=== PATIENT | male | born 1960 | race African-American/Black ===

== ENCOUNTER → 2017-07-04 | Outpatient (CLI) | payer OTHER ==
[~2017-07-04] MED LIST: ALLOPURINOL 30300 M2 PO; BUSPIRONE PO; DILANTIN100 MG PO; FAMOTIDINE20 MG PO; GLYBURIDE 2.52.5 M1 GT; LISINOPRIL40 MG PO; METFORMIN 500500 MG PO; NORCO 5-325 TA1 EACH PO; PREDNISONE 10 M10 MG PO; SIMVASTATIN40 MG PO; TRAMADOL 50 MG50 MG PO
== END ==
LOC: RAD 11:35
DX: R61 Generalized hyperhidrosis (principal); Z98.890 Other specified postprocedural states; Z87.81 Personal history of (healed) traumatic fracture

== ENCOUNTER → 2017-07-18 | Outpatient (CLI) | payer OTHER | LOC: ULTRA 15:10 | DX: K76.0 Fatty (change of) liver, not elsewhere classified (principal); R94.5 Abnormal results of liver function studies ==

== ENCOUNTER 2020-05-17 10:14 | Inpatient (IN) | payer OTHER ==
[~2020-05-17] VITALS: Ht 177.8 cm; Wt 92.1 kg
[~2020-05-17 10:14] MED LIST changes: -ALLOPURINOL 30300 M2 PO; +ZYLOPRIM300 MG PO
[2020-05-17 10:19] VITALS: BP 148/87
[2020-05-17 12:09] LABS: ABSOLUTE NEUTROPHILS 3.8 thou/uL (1.4-8.2); BASOPHILS 0.6 % (0.0-2.0); EOSINOPHILS 0.1 % (0.0-3.0); HEMATOCRIT 38.2 % (42.0-52.0); HEMOGLOBIN 11.8 gm/dL (14.0-18.0); LYMPHOCYTES 23.5 % (24.0-44.0); MCH 25.2 pg (26.0-34.0); MCHC 30.8 g/dL (28.0-37.0); MCV 81.9 fL (80.0-100.0); MONOCYTES 6.7 % (1.0-8.0); POLYS 69.1 % (36.0-66.0); RBC 4.66 mil/uL (4.50-6.00); RDW 17.2 % (10.5-14.5); WBC 5.5 thou/uL (4.0-11.0)
[2020-05-17 12:45] VITALS: BP 140/83
[2020-05-17] MEDS ORDERED: AMITRIPTYLINE H10 M1 PO (12:51)
[2020-05-17] MEDS ORDERED: NORVASC 2.5 MG2.5 M1 PO (12:51)
[2020-05-17] MEDS ORDERED: HYDROCORTISONE30 GM TOP (12:52)
[2020-05-17] MEDS ORDERED: VOLTAREN GEL 1100 G1 TOP (12:52)
[2020-05-17] MEDS ORDERED: LYRICA 50 MG50 MG PO ×2 (12:53→14:53)
[2020-05-17] MEDS ORDERED: TRAMADOL 50 MG50 MG PO (12:54)
[2020-05-17] MEDS ORDERED: TOPROL XL25 MG PO (12:54)
[2020-05-17] MEDS ORDERED: MITIGARE0.6 MG PO ×2 (12:54→14:53)
[2020-05-17] MEDS ORDERED: DESYREL150 MG PO (12:55)
[2020-05-17 13:11] LABS: CALCIUM 9.3 mg/dL (8.5-10.1); CREATININE 0.9 mg/dL (0.7-1.3); POTASSIUM 3.6 mmol/L (3.5-5.1)
[2020-05-17 13:18] LABS: ALBUMIN 3.2 g/dL (3.4-5.0); MAGNESIUM 1.5 mg/dL (1.8-2.4); TOTAL BILIRUBIN 0.5 mg/dL (0.2-1.0); TOTAL PROTEIN 7.8 g/dL (6.4-8.2)
[2020-05-17 13:30] VITALS: BP 161/86
[2020-05-17 13:32] LABS: FOLIC ACID 12.2 ng/mL (8.6-58.9)
[2020-05-17 13:44] LABS: ANISOCYTOSIS 1+; BURR CELLS OCCASIONAL; LARGE PLATELETS OCCASIONAL; POIKILOCYTOSIS SLIGHT; TARGET CELLS FEW
[2020-05-17 13:45] LABS: PLATELET COUNT 209 thou/uL (150-400)
--- NOTE | 2020-05-17 13:54 | NUR ---
ASSUMED CARE AT 1300. PT IS A&O X4. PT COMPLAINS OF PAIN ON RIGHT SHOULDER. PT DENIES NAUSEA, VOMITTING, DIARRHEA. PT DENIES SCD HOSE AND CONTACTED DR. FOX REGARDING ORDERING LOVENOX/HEPARIN DUE TO REFUSAL ON SCD HOSE. IV IS INTACT AND SHOWS NO SIGNS OF REDNESS OR SWELLING. FALL PRECAUTION. CALL LIGHT WITHIN REACH.
[2020-05-17] MEDS ORDERED: VITAMIN D310 MC2 PO (14:55)
[2020-05-17 15:45] VITALS: BP 154/85
[2020-05-17 20:39] VITALS: BP 148/77
[2020-05-18 05:23] LABS: ABSOLUTE NEUTROPHILS 5.3 thou/uL (1.4-8.2); BASOPHILS 0.3 % (0.0-2.0); EOSINOPHILS 0.9 % (0.0-3.0); HEMATOCRIT 33.1 % (42.0-52.0); HEMOGLOBIN 10.3 gm/dL (14.0-18.0); LYMPHOCYTES 27.2 % (24.0-44.0); MCH 25.2 pg (26.0-34.0); MCV 81.4 fL (80.0-100.0); MONOCYTES 14.7 % (1.0-8.0); POLYS 56.9 % (36.0-66.0); RBC 4.07 mil/uL (4.50-6.00); RDW 16.4 % (10.5-14.5); WBC 9.3 thou/uL (4.0-11.0)
[2020-05-18 05:53] LABS: CALCIUM 9.2 mg/dL (8.5-10.1); MAGNESIUM 1.4 mg/dL (1.8-2.4); POTASSIUM 3.3 mmol/L (3.5-5.1)
--- NOTE | 2020-05-18 06:31 | NUR ---
ASSESSED AT START OF SHIFT. PT C/O PAIN IN RIGHT SHOULDER MANAGED BY PO PAIN MEDS SEE EMAR. UP WITH ASSITX1 TO THE BR. COVID SWAB DONE AND RESULT NEGATIVE. RIGHT SHOULDER SLING INTACT. PT NPO FOR POSSIBLE SX TOMORROW. FALL PREC IN PLACE WILL CONT TO MONITOR.
[2020-05-18 08:17] LABS: URINE BILIRUBIN NEGATIVE (Negative); URINE BLOOD NEGATIVE (Negative); URINE CLARITY CLEAR; URINE COLOR YELLOW; URINE GLUCOSE-RANDOM* NEGATIVE (Negative); URINE KETONES NEGATIVE (Negative); URINE LEUKOCYTES-REFLEX NEGATIVE (Negative); URINE NITRITE-REFLEX NEGATIVE (Negative); URINE PROTEIN (DIPSTICK) NEGATIVE (Negative); URINE SPECIFIC GRAVITY >= 1.030 (1.005-1.035); URINE UROBILINOGEN 0.2 E.U./dl (0.2-1.0)
[2020-05-18] MEDS ORDERED: PREGABALIN50 MG PO (08:28)
--- NOTE | 2020-05-18 11:33 | NUR ---
assessment: cm reviewed chart and spoke with patient. PT IS ALERT AND ORIENTED X4. PT WAS ADMITTED WITH A RIGHT SHOULDER FRACTURE. PTS ARM IS IN SLING AND ORTHO WAS CONSULTED- PT WANTS TO AVOID SURGERY AT THIS TIME. PT REPORTS LIVING AT HOME IN AN APT LONE. PT REPORTS NO STEPS TO ENTER OR ONCE INSIDE. PT HAS A WALKER AT HOME TO ASSIT WITH AMBULATION BUT CANNOT USE IT NOW DUE TO HIS SLING. PT/OT IS TO WORK WITH PATIENT BUT WAITING FOR IMMOBILIZER. ORTHO RECOMMENDED SNF FOR PATIENT BUT PT HAS MEDICAID WHICH DOES NOT COVER SNF AND ONLY OPTION IS ACUTE REHAB VS HOME WITH HOME HEALTH. CM NOTIFIED [facility] OF REFERRAL AND THEY ARE AWAITING PT/OT EVALS. CM ALSO FAXED REFERRAL TO [facility] THEY ACCEPT MEDICAID BUT CAN ONLY PROVIDE AN RN AND PT/OT HH IS NOT COVERED UNDER MEDICAID. PT REPORTS HE ALSO GETS HELP AT HOME THROUGH THE WHOLE PERSON WHERE SOMEONE COMES 4HRS A WEEK TO HELP ASSIST HIM IF NEEDED WITH LAUNDRY, ECT. CM WILL CONTINUE TO FOLLOW AND AWAIT FURTHER INPUT FROM [facility].
[2020-05-18 13:29] LABS: PLATELET COUNT 94 thou/uL (150-400)
--- NOTE | 2020-05-18 14:58 | NUR ---
PT CARE ASSUMED AT 0700. A&Ox4. SHOULDER IMMOBILIZER IN PLACE. PT WILL CONTINUE TO ASK FOR PAIN MEDICATION, AND ASK ALL STAFF THAT HIS PAIN IS NOT CONTROLLED. IV PATENT WITH NO REDNESS OR EDEMA, SALINE LOCKED. SENT TO CT, AWAITING RESULTS. PT/OT EVALUATION COMPLEETED. POSSIBLE DISCHARGE TO REHAB TODAY. FALL PROTOCOL IN PLACE. CALL LIGHT IN REACH. WILL CONTINUE TO MONITOR.
[2020-05-18 16:07] VITALS: BP 142/80
[2020-05-18 19:30] VITALS: BP 147/76
[2020-05-19 04:33] VITALS: BP 134/67
--- NOTE | 2020-05-19 06:08 | NUR ---
05-18-19 CARE TRANSFERRED 1899. PT AAOX4, VSS, RR EVEN AND NONLABORED ON RA. PT REPORTS PAIN, MANAGED WITH MEDICATION. LUNGS SOUNDS CLEAR AND HT RR. L AC SALINE LOCK, CLEAN, DRY AND INTACT. 375ML OF DARK YELLOW URINE. ZERO S/S OF ACUTE DISTRESS NOTED, PT WILL CONTINUE TO BE MONITOR.
[2020-05-19 07:35] VITALS: BP 132/63
[2020-05-19 08:38] VITALS: BP 132/63
--- NOTE | 2020-05-19 09:35 | NUR ---
ON-GOING ASSESSMENT: ASHLEY REVIEWED CHART AND SPOKE WITH LIASON FROM WHO REPORTS THEY HAVE INSURANCE AUTH TO ACCEPT PT. CM NOTIFIED ATTENDING. HE STATES HE WILL DO DISCHARGE ORDERS. CM SPOKE WITH PT AND NOTIFIED HIM AND HE IS AGREEABLE WITH . PLANS TO ADMIT TO TODAY. BEDSIDE RN AWARE OF NUMBER FOR REPORT.
[2020-05-19] MEDS ORDERED: BUSPIRONE HCL10 MG PO (09:58)
[2020-05-19] MEDS ORDERED: PERCOCET 10-321 EACH PO (09:58)
== END 2020-05-19 13:08 | DRG 563 ==
LOC: ER 10:14 → EROBS 12:37 → 4S 13:20
PROVIDERS: Nurse Practitioner; ADMIT Hospitalist; ATTEND Hospitalist
DX: S42.211A Unspecified displaced fracture of surgical neck of right humerus, initial encounter for closed fracture (principal); M10.9 Gout, unspecified; E78.5 Hyperlipidemia, unspecified; I10 Essential (primary) hypertension; G89.29 Other chronic pain; E11.42 Type 2 diabetes mellitus with diabetic polyneuropathy; F17.210 Nicotine dependence, cigarettes, uncomplicated; F41.1 Generalized anxiety disorder; E66.9 Obesity, unspecified; Z68.29 Body mass index [BMI] 29.0-29.9, adult; M48.02 Spinal stenosis, cervical region; M47.892 Other spondylosis, cervical region; W18.39XA Other fall on same level, initial encounter; Y93.89 Activity, other specified; Y92.89 Other specified places as the place of occurrence of the external cause; Y99.8 Other external cause status; Z20.822 Contact with and (suspected) exposure to COVID-19
CPT/HCPCS: 10195

== ENCOUNTER 2020-05-19 10:18 | Inpatient (IN) | payer OTHER ==
[~2020-05-19] VITALS: Ht 177.8 cm; Wt 92.1 kg
[~2020-05-19 10:18] MED LIST changes: +AMITRIPTYLINE H10 M1 PO; +BUSPIRONE HCL10 MG PO; +DESYREL150 MG PO; +HYDROCORTISONE30 GM TOP; +LYRICA 50 MG50 MG PO; +MITIGARE0.6 MG PO; +NORVASC 2.5 MG2.5 M1 PO; +PERCOCET 10-321 EACH PO; +PREGABALIN50 MG PO; +TOPROL XL25 MG PO; +VITAMIN D310 MC2 PO; +VOLTAREN GEL 1100 G1 TOP
[2020-05-19 14:06] VITALS: BP 131/79
--- NOTE | 2020-05-19 15:45 | NUR ---
PATIENT IS AN 59 YEAR OLD MALE WHO ARRIVED TO [facility] REHAB UNIT FROM [facility] AT 1255HOURS PATIENT ADMITTED TO ROOM 512. PATIENT IS ALERT, AND ORIENTED X 3-4 ABLE TO VOICE NEED. LCTA, RESP EVEN/UNLABORED, NO SOA/CYANOSIS NOTED, BS+X4, ABS ROUND, OBESE. PATIENT IS ADMITTED FOR RIGHT HUMERAL NECK FRACTURE DUE TO FALL AT HOME. PATIENT IS NWB TO RIGHT HAND, SLING IN PLACE. PATIENT HAS SALINE LOCK TO LEFT AC. PATIENT HAS HISTORY OF DIABETIC TYPE 2. PATIENT HAD SEVERE PAIN OF 10/10 TO RIGHT SHOULDER UPON ARRIVAL TO THE UNIT, PRN OXY GIVEN, WITH PARTIAL EFFECT, PAIN DECREASED TO 7/10. PT/OT WORKING WITH PATIENT, HE USES WALKER FOR MOBILITY, GAIT UNSTEADY. CURRENTLY IN [facility] WATCHING TV, NO SIGN OF ACUTE DISTRESS NOTED, CALL LIGHT IN REACH, WILL MONITOR FOR SAFETY.
[2020-05-19 20:00] VITALS: BP 141/79
--- NOTE | 2020-05-20 03:52 | NUR ---
Assumed care of patient this pm shift. Patient is in good spirits, calm and cooperative. Alert and oriented x4. Takes medications whole with thin liquids. Falls precautions in place. Pain has been controlled with oxycodone. Patient reports pain levels decrease significantly with medication. Assessment shows no signs of acute distress. Patient was concerned about his medications at the beginning of the shift as to whether they transferred from his previous location to [facility]. RN explained which medications were available at . Patient was satisfied with the explanation. We will continue to monitor per hospital policy.
[2020-05-20 06:11] LABS: HEMATOCRIT 29.8 % (42.0-52.0); HEMOGLOBIN 9.2 gm/dL (14.0-18.0); MCH 25.5 pg (26.0-34.0); MCHC 30.8 g/dL (28.0-37.0); MCV 82.5 fL (80.0-100.0); RBC 3.61 mil/uL (4.50-6.00); WBC 8.4 thou/uL (4.0-11.0)
[2020-05-20 06:18] LABS: CALCIUM 9.3 mg/dL (8.5-10.1); CREATININE 0.9 mg/dL (0.7-1.3); POTASSIUM 3.8 mmol/L (3.5-5.1)
[2020-05-20 07:00] VITALS: BP 141/78
[2020-05-20 19:40] VITALS: BP 136/66
--- NOTE | 2020-05-20 19:42 | NUR ---
Alert and orientated X4. Calm, cooperative and compliant. Significant pain in R shoulder today, medicated with hydrocodone and diclofenac with moderate results. Breath sounds clear. Reg HR auscultated. Color pink with brisk capillary refill and palpable peripheral pulses. +1 edema in lower extremities. Maximo hose provided and applied per pt request. Continent of yellow urine per toilet. Active bowel sounds over large, soft, rounded abdomen. Steady gait with walker and gait belt. Shoulder immobilizer in place all day.
--- NOTE | 2020-05-21 01:57 | NUR ---
UP TO TOILET AND TO BED FROM CHAIR WITH STANDBY ASSIST, GAIT BELT, AND HALF WALKER. ICE BAG AND VOLTAREN TO RIGHT SHOULDER. PATIENT NOTES SIGNIFICANT BRUISING. PAIN MED Q 4 HOURS, REPORTS SIGNIFICANT RELIEF FOR FIRST 3 HOURS.
[2020-05-21 03:07] LABS: GLYCOHEMOGLOBIN (HGB A1C) 5.7 % (4.8-5.6)
[2020-05-21 08:44] VITALS: BP 126/59
--- NOTE | 2020-05-21 14:09 | NUR ---
ASSUMED CARE AT 0700 THIS MORNING. PT. STABLE. HAS KNEE HIGH DEDRICK LARSON ON. HE WAS ASKING FOR ANOTHER PAIR. HE AMBULATED WITH THERAPIES THIS MORNING. HE HAS BEEN UP IN THE CHAIR BY BEDSIDE TODAY. HE TOOK ALL HIS MORNING MEDICATIONS WITHOUT PROBLEMS NOTED. HAD FEMALE VISITOR TODAY. THEY WERE GOING THROUGH PT.'S CLOTHING. PT. HAS BEEN PLEASANT AND COOPERATIVE. HE IS EATING WELL.
[2020-05-21 20:09] VITALS: BP 140/82
--- NOTE | 2020-05-22 01:58 | NUR ---
UP TO TOILET WITH PYRAMID CANE AND STANDBY ASSIST. TO BED APPROX 2129, DECLINES OFFER TO REMOVE DEDRICK HOSE OVERNIGHT, ABLE TO USE URINAL. 4 PILLOWS TO ADJUST BED ENOUGH THAT HIS ELBOWS ARE SUPPORTED WITH HIS RIGHT SHOULDER IMMOBILIZER HOLDING HIS HUMERUS IN PLACE. PERCOCET FOR PAIN LESS OFTEN THAN THE AVAILABLE Q4H, TAKES WHEN PAIN 8/10 APPROACHES 9/10. ICE PACK AND VOLTAREM HELPFUL WELL.
[2020-05-22 07:20] VITALS: BP 128/75
--- NOTE | 2020-05-22 13:23 | NUR ---
INITIAL REHAB ASSESSMENT: Received consult. SW reviewed chart. Pt was admitted on 05/19 due to abnormality of gait/mobility. SW placed calls to pt's room. No answer Per chart, pt is alert/orientated x 4. Pt lives at home alone in an apt. No steps to navigate. Pt normally uses a walker for ambulation. Pt with new right shoulder fracture, which is currently in a sling. No plans for surgical interventions at this time. Pt [place] care [place] through the [facility]: 4 hours/week. Pt's PCP is Dr. Baljeet Gillette. Team conference to be held tomorrow. Plan is for pt to discharge home when medically stable. MICHELLE is following to assist as needed with discharge planning.
--- NOTE | 2020-05-22 18:10 | NUR ---
PT CARE ASSUMED AT 0700. A&Ox4. PT COMPLAINED OF PAIN TWICE DURING THIS SHIFT THAT WAS RESOLVED WITH PAIN MEDICATION ON BOAR. PT HAD TO URGENTLY GO TOT THE BATHROOM AND GOT UP WITHOUT CALLING FOR ASSISTANCE. IMOBILIZER IN PLACE. USES URINAL AT BEDSITE. TEDHOSES IN PLACE. FALL PROTOCOL IN PLACE. CALL LIGHT IN REACH. WILL CONTINUE TO MONITOR.
[2020-05-22 19:49] VITALS: BP 140/81
--- NOTE | 2020-05-22 23:12 | NUR ---
PATIENT WAS IRRITABLE THIS EVENING WHEN I ASSUMED CARE OF HIM. THE DAY NURSE STATES THAT PATIENT HAS BEEN ADDICTED TO NARCOTIC PAIN MEDS AND HIS PCP HAD FIRED HIM A PATIENT BECAUSE HE WAS SHOPPING AROUND TO GET PAIN MEDS. BELIEVE THE ADDICTION CAME FROM HAVING PAST SURGERIES. PATIENT HAS PERCOCET ORDERED EVERY 4 HOURS PRN. WHEN HE WAS ON ANOTHER FLOOR IT WAS Q6H PRN. PATIENT WAS C/O 10/10 PAIN IN RIGHT ARM/SHOULDER WHEN I GAVE HIM HIS HS MEDS. PERCOCET GIVEN AT THAT TIME FOR PAIN RELIEF. PATIENT USES A PYRAMID QUAD CANE BUT FORGETS TO USE IT FREQUENTLY. HE IS MODERATELY STEADY ON HIS FEET AND WITH GAIT. GAIT BELT USE ALSO. PATIENT HAS A SHOULDER IMMOBILIZER ON RIGHT ARM. HE GETS ANGRY WHEN THE BED AND CHAIR ALARM GOES OFF AND DOESN'T FEEL HE NEEDS SOMEONE TO HELP HIM MANEUVER AROUND HIS ROOM. PATIENT WAS IRRITIABLE TONIGHT BEFORE HIS PAIN MED. HIS HANDS WERE TREMORING SLIGHTLY WHEN HE TOOK HIS MEDS VSS. HE IS A/0X4. PATIENT DECLINED HIS DOCUSATE NA AND MIRALAX D/T HAVING BMS TODAY. PATIENT IS PRETTY INDEPENDENT WITH CARES. HE DOES NOT LIKE TO ASK FOR HELP BUT WILL ALLOW HELP EVENTUALLY IF HE'S ASKED. PATIENT IS RESTING IN BED. URINAL AT SIDE. BED ALARM IS ON. ROUTINE ROUNDS TO ASSESS SAFETY AND STATUS OF PATIENT.
[2020-05-23 07:40] VITALS: BP 120/79
--- NOTE | 2020-05-23 08:22 | NUR ---
PT SITTING IN CHAIR WITH SLING ON RT ARM. PT USES A ROSAMARIA WALKER TO AMBULATE. PT STATED HE TAKES COLCHICINE 1.2MG FOR HIS GOUT. 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 PT DIDN'T NEED PAIN MEDICATION AT THIS TIME WITH IS TIMED MEDS. PT LUNGS CLEAR. LBM 05/22, HE REFUSED MIRALAX POWDER THIS AM AND COLACE.
[2020-05-23] MEDS ORDERED: MITIGARE0.6 MG PO (08:34)
[2020-05-23 12:04] LABS: CALCIUM 10.1 mg/dL (8.5-10.1); POTASSIUM 4.1 mmol/L (3.5-5.1); URIC ACID* 4.2 mg/dL (3.5-7.2)
--- NOTE | 2020-05-23 13:36 | NUR ---
ADM OXYCODONE 10MG PO FOR PAIN TO RT ARM OF 7 ON 1-10 SCALE. PT GETTING READY TO WORK WITH THERAPY AT THIS TIME.
[2020-05-23 14:30] LABS: HEMATOCRIT 31.5 % (42.0-52.0); HEMOGLOBIN 9.7 gm/dL (14.0-18.0); MCH 25.5 pg (26.0-34.0); MCHC 30.7 g/dL (28.0-37.0); MCV 82.9 fL (80.0-100.0); PLATELET COUNT 163 thou/uL (150-400); RDW 16.6 % (10.5-14.5); WBC 7.9 thou/uL (4.0-11.0)
[2020-05-23 15:06] LABS: ANISOCYTOSIS 1+; ATYPICAL LYMPHS 2 %; PLATELET ESTIMATE NORMAL
[2020-05-23 15:07] LABS: HYPOCHROMASIA 1+; MICROCYTES 1+; POIKILOCYTOSIS 1+; TARGET CELLS 1+
[2020-05-23 15:08] LABS: MACROCYTES SLIGHT; POLYCHROMASIA SLIGHT
--- NOTE | 2020-05-23 15:33 | NUR ---
TEAM CONFERENCE: PT ADMITTED TO ARU W/DX OF CERVICAL MYELOPATHY AND LUMBAR RADICULOPATHY AND R SHOULDER FX. PT GAIT IS 75X2 W/ WALKER. PT RECEIVES 4HR/WK FROM [facility]. ASHLEY WEBERK W/FLIP AT [facility], WHO WILL PUT IN REQUEST W/"THE STATED FOR INCREASE" IN HOURS. PER FLIP IT CAN TAKE UP TO "30 TO 45 DAYS." CM TO PROVIDE PT W/LIFE ALERT RESOURCES. PT [employer] D/C IS 05/30. PT AND DTR, WILY HAVE BEEN NOTIFIED. WILY CAN CHECK ON PT 3X/WK IN THE MORNINGS AND SHE WILL SEE IF HER AUNT CAN CHECK ON PT WELL. D/C WEATHER OBSERVER TO SEND REFERRAL TO [facility], FOR RN VISIT. [facility] - [phone].
--- NOTE | 2020-05-23 18:13 | NUR ---
ADM OXYCODONE 10MG PO FOR PAIN TO RT SHOULDER OF 9 ON 1-10 SCALE.
[2020-05-23 19:12] VITALS: BP 146/78
--- NOTE | 2020-05-24 01:51 | NUR ---
PATIENT IS ALERT X 4. SKIN WARM AND DRY. RESP EVEN AND UNLABORED. HAS A RIGHT UPPER ARM IMMOBILIZER. WILL BE DC WITH HOME HEALTH. UP WITH CARE OF 1 PERSON MOD ASSIST. REFUSES AFO. ON ROOM AIR. NO PROBLEMS IN SWOLLOWING NOTED. PAIN MEDICATION GIVEN. UP TO BATHROOM TO VOID BUT SOMETIMES GETS UP WITH OUT WAITING FOR STAFF TO HELP HIM. LUNGS CTA. CONT PLAN OF CARE.DID DRESS HIMSELF TO BE READY FOR BED.
[2020-05-24 08:00] VITALS: BP 134/79
--- NOTE | 2020-05-24 10:08 | NUR ---
FAXED REFERRAL TO [facility] SPOKE WITH PRACHI IN INTAKE SHE RECEIVED REFERRAL AND WILL ACCEPT AT [place] 05/30.
[2020-05-24 10:10] VITALS: BP 134/79
--- NOTE | 2020-05-24 15:31 | PLAN ---
[facility] [place] [address] REHAB UNIT PLAN OF CARE Name: ENZO ALARCON Room #: 512-P ADM IN M.R.#: [id number] Admission: 05/19/20 Attend Phys: Stan Pleitez MD Discharge: Date of : 56 Report #: [id number] THIS REPORT FOR: cc: Baljeet Gillette MD, Neal A. MD Smithson,Stan Stoddard MD ~ DATE OF SERVICE: 05/20/2020 PROGRESS NOTE/OVERALL PLAN OF CARE SUBJECTIVE: The patient was seen back earlier. His temperature is 36.5, pulse 90, respirations 16, blood pressure 141/78. He was in no distress. Appreciate Orthopedics followup with continuing sling and nonweightbearing status on the right upper extremity. We are working with him in therapies and his supervision for sit to stand with min assist, 100 feet ambulation with a vishal walker. Lower body dressing is moderate assistance. ASSESSMENT: 1. Multifactorial gait instability with fall. 2. Post-cervical surgery with residual cervical myelopathy. 3. Epidural lipomatosis with lower extremity weakness. 4. Right humerus fracture, nonweightbearing. 5. Cervical stenosis, status post anterior cervical diskectomy and fusion, 05/31/2019. 6. Premorbid peripheral neuropathy. 7. Diabetes mellitus type 2. 8. Hypertension. 9. History of gout. 10. Anxiety. PLAN: The overall plan of care is based on the preadmission screen and information garnered from therapy assessments. 1. Estimated length of stay is probably at least 14 days. 2. Medical prognosis is reasonably good. 3. Anticipated interventions includes the interdisciplinary acute inpatient rehabilitation program. 4. Anticipated functional outcomes would be for the patient to become modified independent with transfers, mobility and ADLs, so he can return back to the home setting. He is going to need to do things one handed with his nonweightbearing of the right upper extremity and is complicated by the fact that he has the lower extremity weakness with his myelopathy. The goal would be for him to be able to do these things with a vishal walker or Pyramid cane. 5. Discharge destination would be back to the home setting. Hopefully, with increased assistance from his daughter and continuing with involvement with whole person and him being as maximally independent as possible. [address] [address] REHAB UNIT PLAN OF CARE Name: ENZO ALARCON Room #: 512-P [facility] IN ..#: [id number] Admission: 05/19/20 Attend Phys: Stan Pleitez MD Discharge: Date of : 56 Report #: [id number] 6. Expected therapy by discipline includes PT and OT 1-1/2 hours per day each five days a week throughout the duration of the acute inpatient rehabilitation stay. <ELECTRONICALLY SIGNED> By: Stan Pleitez MD 05/24/20 1531 [id number] Stan Pleitez MD /nt
--- NOTE | 2020-05-24 18:00 | NUR ---
PT ATTENDED ALL THERAPIES TODAY, WAS MEDICATED FOR PAIN Q 4-5 HOURS AND HAD PARTIAL PAIN RELIEF. DR. DE JESUS WAS CALLED FOR CLARIFICATION OF RUE ELBOW ROM LIMITATIONS AND TELEPHONE ORDERS WERE RECEIVED AND ENTERED RELAYED BY HIS SUPPLY CHAIN ASSOCIATE, ENTERED OT ORDERS. PT WAS GIVEN EDUCATION REGARDING THIS WELL. KATARZYNAY IN TO VISIT BRIEFLY, AND PT DISCUSSED DC PLANS WITH RN. PT IS IMPULSIVE AT TIMES, AND REPORTED TAKING HIMSELF TO THE BR WITHOUT CALLING FOR ASSIST. REINFORCED SAFETY AND FALL RISK EDUCATION. ALARMS ARE ON.
[2020-05-24 19:35] VITALS: BP 136/79
--- NOTE | 2020-05-25 03:32 | NUR ---
UP TO TOILET WITH MIN ASSIST AND PYRAMID CANE. CHANGED TO FRONT AND BACK GOWN AT HS WITH MOD ASSIST. PAIN MED GIVEN AT 4 THEN 6 HOUR INTERVAL, STATES ICE TO RIGHT SHOULDER APPRECIATED. USING URINAL ONCE IN BED FOR THE NIGHT.
[2020-05-25 08:00] VITALS: BP 120/76
--- NOTE | 2020-05-25 10:21 | NUR ---
ASSUMED CARE AT 0700. PATIENT IS ALERT AND ORIENTED X4. PATIENT HAS RIGHT SHOULDER IMMOBILIZER IN PLACE. PATIENT LUNGS ARE CLEAR AND DEMINISHED. ABD IS SOFT WITH BSX4. UP IN THE CHAIR FOR MEALS. FALL AND SAFETY PROTOCOLS IN PLACE. C/O PAIN IN HIS RIGHT SHOULDER. MEDICATED WITH PRN PAIN MED. CONTINUES TO PROGRESS SLOWLY TOWARDS D/C GOALS. SALES REPRESENTATIVE GROCERIES HERE TO SEE PATIENT. WILL CONTINUE TO MONITER.
--- NOTE | 2020-05-25 14:44 | NUR ---
CM PROVIDED PT WITH RESOURCE LIST FOR LIFE ALERT.
[2020-05-25 20:20] VITALS: BP 139/79
--- NOTE | 2020-05-26 04:06 | NUR ---
ASSESSED AT START OF SHIFT. PT A&OX4 C/O PAIN MANAGED BY PO PAIN MEDS. RT ARM IMMBOLIZER INTACT. PT UP WITH SBA TO THE BATHROOM. URINAL BY BEDSIDE. VOLTEREN GEL APPLIED ON SHOULDER. ICE PACK PROVIDED. FALL PREC IN PLACE AND CALL LIGHT AT REACH WILL CONT TO MONITOR.
[2020-05-26 07:20] VITALS: BP 124/81
--- NOTE | 2020-05-26 16:02 | NUR ---
Alert and orientated X 4. Calm, cooperative and compliant. Breath sounds clear. Reg HR auscultated. Color pink with brisk capillary refill and palpable peripheral pulses. Independent with voiding. Active bowel sounds over soft, rounded abdomen. R arm in immobilizer, skin warm to touch with strong pulse and brisk capillary refill. Ambulates with slow, steady gait with walker. 1400 To radiology for Xray of R shoulder. Requesting pain med for pain of 10 in R shoulder, provided. No s/o distress, sitting in chair.
[2020-05-26 20:00] VITALS: BP 147/79
--- NOTE | 2020-05-27 03:38 | NUR ---
assumed care approx 1900 evening 05/26. pt alert and oriented x4, appropriate and cooperative. pt wearing immobilizer to right shoulder and arm. pt took meds with water tolerating well. pt up to bathroom with supervision assist to void in toilet. bed alarm on and call light in reach. will continue to monitor.
[2020-05-27 08:00] VITALS: BP 145/77
--- NOTE | 2020-05-27 12:45 | NUR ---
ASSUMED CARE AT 0700. PT SLEPT FAIRLY WELL. ALERT AND ORIENTATED. PAIN IS STABLE AND MANAGEABLE WITH OXYCODONE/LYRICA/VOLTAREN GEL. HAS A ICE PACK TO R SHOULDER PRN. UP WITH SBA TO BATHROOM AND PARTICIPATING WITH THREAPY AND PROGRESSING TOWARDS GOAL. APPETITE GOOD, ABLE TO SELF FEED AND INDEPENDENT WITH ADLS. REFUSED MIRALAX AND WILL ONLY TAKE COLACE FOR BOWEL REGIMEN. DR MARQUEZ NOTED. NO OTHER CONCERNS. CONT TO MONITOR.
[2020-05-27 19:23] VITALS: BP 136/76
--- NOTE | 2020-05-28 02:24 | NUR ---
UP FROM CHAIR TO TOILET WITH STANDBY ASSIST, USING URINAL SINCE IN BED SINCE 2299. ABLE TO KEEP RIGHT ARM CLOSE TO BODY WHILE CHANGING FROM CLOTHES TO GOWN. VOLTAREN GEL AND ICE TO RIGHT SHOULDER TO MINIMIZE PAIN, REQUESTING PAIN PILL CONSISTENTLY EVERY 4 HOURS FOR PAIN BACK UP TO 9 OR 10.
[2020-05-28 07:20] VITALS: BP 134/75
--- NOTE | 2020-05-28 12:19 | NUR ---
ASSUMED CARE AT 0700. SLEPT WELL. ALERT AND ORIENTATED. PAIN IS STABLE AND CONTROL WITH EVERY 4 HR PERCOCET WITH ARTURO LYRICA AND VOLTAREN GEL AND ICE PACK. INDEPENDENT WITH ADLS. NURSING WALKED HIM IN THE HALLWAY USING A QUAD CANE AND TOLERATED WELL. PT HAS NO BM SINCE 05/26 AND DOES NOT THINK HE NEEDS ANY MIRALAX FOR NOW. PT OFFERED PRN BUT REFUSED FOR NOW. APPETITE GOOD. PLAN FOR DC NEXT WEEK.
[2020-05-28 19:06] VITALS: BP 151/80
--- NOTE | 2020-05-28 23:28 | NUR ---
PT ASSESSMENT COMPLETED AND VSS. MEDS GIVEN ORDERED AND WELL TOLERATED. FALL PRECAUTIONS IN PLACE. VOIDING PER URINAL. RECHECKED BG THIS EVENING PER PT REQUEST. LAST BG AT DINNER WAS ONLY 75. BG WAS WNL AT BEDTIME. IMMOBILIZER TO R ARM IN PLACE. SLEEPING WELL. WILL CONTINUE TO MONITOR FREQUENTLY. PRN PAIN AND SLEEP MEDICATION HELPUFL.
[2020-05-29 08:00] VITALS: BP 145/90
--- NOTE | 2020-05-29 10:24 | HC ---
[facility] [place] [address] CONSULTATION Name: ENZO ALARCON Room #: 512-P [facility] IN M.R.#: [id number] Admission: 05/19/20 Attend Phys: Stan Pleitez MD Discharge: Date of : 56 Report #: [id number] THIS REPORT FOR: cc: Baljeet Gillette MD, Neal A. MD Deutch, Neal B. PhD ~ DATE OF SERVICE: 05/21/2020 NEUROBEHAVIORAL STATUS EXAM ATTENDING PHYSICIAN: Stan Pleitez MD BALLISTICS TEACHER: Baljeet Hutchins, PhD CLINICAL PRESENTATION: The patient is a 59-year-old male who initially presented to [facility] with a right shoulder pain following an incident at his home in which he fell. The patient was diagnosed with a right humeral neck fracture. The patient was wanting to avoid surgery and he is now nonweightbearing, utilizing a sling. The patient also struck the right side of his head when he fell. There was no reported loss of consciousness, retrograde or posttraumatic amnesia after the fall. His medical problem list included a fall, fracture of the right humerus, left rib fracture, rib pain on the left side and shoulder fracture. His past medical history also included gout, hypertension, diabetes mellitus type 2, hyperlipidemia, cervical pain and peripheral neuropathy. The assessment on admission to the rehabilitation unit was multifactorial gait instability with fall, post cervical surgery with residual cervical myelopathy, epidural lipomatosis with LE weakness, right humerus fracture nonweightbearing, cervical stenosis status post ACDF on 05/2019, premorbid peripheral neuropathy, type 2 diabetes mellitus, hypertension, history of gout and anxiety. A complete description of his medical condition and history can be found in his medical record. Neuropsychological consultation was requested to provide assistance in the assessment of cognitive and emotional status and to provide recommendations and services. The patient reports living by himself. He has 1 daughter. The patient had 3 children. One son at and another son at age 35. The patient is a college graduate. 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 He reports having had prior treatment for anxiety. TECHNIQUES UTILIZED: Clinical interview, review of medical records, staff consultation and behavioral observation, mini-mental status exam to standard version, and brief letter and category fluency assessment. [address] [address] CONSULTATION Name: ENZO ALARCON Kathleen Room #: 512-P [facility] IN ..#: [id number] Admission: 05/19/20 Attend Phys: Stan Pleitez MD Discharge: Date of : 56 Report #: [id number] EXAMINATION FINDINGS: The patient was alert and cooperative with the assessment. He accurately described events surrounding his admission. There is no evidence of aphasia. He does not report auditory or visual hallucinations. His thoughts are logical and goal oriented. He does not report suicidal ideation. He describes his symptoms to include increased anxiety. The patient does report having had 3 seizures prior to 2003, but none since that time. The patient does not report difficulty with memory, word finding, sleep or appetite. His mood he describes as optimistic and positive. His performance on the MMSE 2 brief version was 14/16, which is within normal limits. He was 3/3 for initial registration, 5/5 for orientation to time and place and 1/3 for immediate recall of 3 items after a brief time delay and distraction. Performance on the MMSE 2 standard version is within normal limits with a raw score 28/30. The patient was unable to use his right arm for any constructive tasks because of it being nonweightbearing and in a sling. His left hand was satisfactory for reproduction of a simple geometric design. Brief letter fluency assessment was average and within normal limits with a T-score of 47 and a raw score of 14. Category fluency assessed through animal was T-score 36 and percentile rank of 8. The patient is alert and oriented. Subtle difficulty in verbal fluency may suggest difficulty with thought organization and possible executive functioning concerns. He does report increased anxiety. DIAGNOSTIC IMPRESSION: Generalized anxiety disorder. Subtle neurocognitive disorder. RECOMMENDATIONS: The patient may benefit from increased support from family to ensure his ability to maintain adequate independence in the home setting given the current limitations of his right shoulder and possible concussive event. Continue treatment for anxiety. He may benefit from the use of relaxation techniques along with breathing strategies for management of anxiety. Verbal praise and complements about participation in therapies will also be of benefit along with reassurance. Consider follow up neuropsychological testing if symptoms persist. [address] [address] CONSULTATION Name: ENZO ALARCON Room #: 512-P [facility] IN ..#: [id number] Admission: 05/19/20 Attend Phys: Stan Pleitez MD Discharge: Date of : 56 Report #: [id number] Thank you very much for allowing me to provide the consultation on this patient. <ELECTRONICALLY SIGNED> By: Baljeet Hutchins, PhD 05/29/20 [id number] [id number] Baljeet Hutchins, PhD /nt
--- NOTE | 2020-05-29 11:54 | NUR ---
ASSUMED CARE AT 0700. PATIENT IS ALERT AND ORIENTED X4. PATIENT HAS RIGHT ARM IMMOBILIZER ON AND IN PLACE. ORTHO HERE TO SEE PATIENT. LUNGS ARE CLEAR. ABD IS SOFT WITH BSX4. UP IN THE CHAIR FOR MEALS. FALL AND SAFETY PROTOCOLS IN PLACE. C/O PAIN. MEDICATED WITH PRN PAIN MED. CONTINUES TO PROGRESS TOWARDS D/C GOALS. WILL CONTINUE TO MONITER.
--- NOTE | 2020-05-29 13:01 | NUR ---
Nutrition: pt admitted with RLE weakness, gait instability with fall, humerus fx. Seen due to LOS. Chart reviewed. Pt eating 100% of all meals on carb controlled diet. A1C 5.7, BG controlled. Vitamin D deficiency-on supplement. Pt without questions/concerns for RD. Plan D/C with home health 05/30. Low nutrition risk.
--- NOTE | 2020-05-30 04:21 | NUR ---
Assumed care this pm shift. Patient in good spirits, calm and cooperative. Alert and oriented x4. Takes medications whole with thin liquids. Has pain in the right shoulder. Oxycodone for pain relief. Ambulates with a walker. Falls risk precautions in place. Assessment shows no signs of acute distress. Patient is anxiously awaiting discharge today. Continent of bowel and bladder. Urinal at bedside. We will continue to monitor per hospital policy.
[2020-05-30 08:00] VITALS: BP 142/87
[2020-05-30] MEDS ORDERED: COLACE100 MG PO (08:11)
[2020-05-30] MEDS ORDERED: IRON325 PO (08:11)
[2020-05-30] MEDS ORDERED: FOLIC ACID1 MG PO (08:11)
--- NOTE | 2020-05-30 09:17 | NUR ---
CM FAXED REFERRAL TO [facility]. [phone] (F).
--- NOTE | 2020-05-30 09:38 | NUR ---
PT NOTIFIED JACKELYN TO ACCEPT [facility] AND WILL CALL TO [place]GE VISIT. PER PT JACKELYN HAS CONTACTED HIM ALREADY
--- NOTE | 2020-05-30 10:42 | NUR ---
ASSUMED CARE AT 0700. PATIENT IS ALERT AND ORIENTED X4. 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 LUNGS ARE CLEAR. ABD IS SOFT WITH BSX4. UP TO THE BATHROOM WITH ASSIST OF ONE STAFF WITH GAIT BELt AND WALKER TO VOID MATA COLORED URINE. PT IS UP IN CHAIR FOR MEALS. FALL AND SAFETY PROTOCOLS IN PLACE. C/O PAIN IN HIS RIGHT SHOULDER. SHOULDER IMMOBILIZER ON AND IN PLACE. CONTINUES TO PROGRESS TOWARDS D/C GOALS. PLAN D/C LATER TODAY. WILL CONTINUE TO MONITER.
[2020-05-30 11:59] VITALS: BP 134/79
[2020-05-30 12:58] VITALS: BP 134/79
--- NOTE | 2020-05-30 12:59 | NUR ---
PT DISCHARING TODAY TO HOME WITH JACKELYN MARTINEZ ([place]) FAXED DC ORDERS/SUMMARY SPOKE WITH PRACHI IN INTAKS SHE RECEIVED ORDERS AND WILL ARRANGE VISITS WITH PT.
--- NOTE | 2020-05-30 13:42 | NUR ---
DISCHARGE INSTRUCTIONS GIVEN TO PATIENT. PATIENT VERBALIZED UNDERSTANDING. PATIENT LEFT UNIT PER W/C AND HIS D/C INSTRUCTIONS AND SCRIPTS WITH DAUGHTER IN ATTENDENCE. PATIENT IS SBA FROM W/C TO DAUGHTERS CAR WITH HIS CANE.
--- NOTE | 2020-05-30 15:27 | NUR ---
PT DISCHARGING HOME TODAY WITH JACKELYN ALEXIS FAXED DC ORDERS/SUMMARY SPOKE WITH PRACHI IN INTAKE SHE RECEIVED ORDERS AND WILL ARRANGE VISITS WITH PT,
== END 2020-05-30 13:44 | disposition home health service (06) | DRG 92 ==
PROVIDERS: Nurse Practitioner Family; ADMIT Physical Medicine & Rehabilitation; ATTEND Physical Medicine & Rehabilitation
DX: R26.89 Other abnormalities of gait and mobility (principal); S42.201A Unspecified fracture of upper end of right humerus, initial encounter for closed fracture; G95.89 Other specified diseases of spinal cord; M10.9 Gout, unspecified; I10 Essential (primary) hypertension; E78.5 Hyperlipidemia, unspecified; E11.42 Type 2 diabetes mellitus with diabetic polyneuropathy; F17.210 Nicotine dependence, cigarettes, uncomplicated; F41.9 Anxiety disorder, unspecified; M48.02 Spinal stenosis, cervical region; F41.1 Generalized anxiety disorder; R41.9 Unspecified symptoms and signs involving cognitive functions and awareness; E66.9 Obesity, unspecified; D64.9 Anemia, unspecified; W18.39XA Other fall on same level, initial encounter; Z98.1 Arthrodesis status; Z79.899 Other long term (current) drug therapy; Y93.89 Activity, other specified; Y92.89 Other specified places as the place of occurrence of the external cause; Y99.8 Other external cause status; Z68.29 Body mass index [BMI] 29.0-29.9, adult
CPT/HCPCS: 10112

== ENCOUNTER 2020-10-14 12:37 | Emergency (ER) | payer OTHER ==
[~2020-10-14] VITALS: Ht 177.8 cm; Wt 90.7 kg
[~2020-10-14 12:37] MED LIST changes: +COLACE100 MG PO; +FOLIC ACID1 MG PO; +IRON325 PO
[2020-10-14 13:38] LABS: ABSOLUTE NEUTROPHILS 8.1 thou/uL (1.4-8.2); BASOPHILS 0.2 % (0.0-2.0); EOSINOPHILS 0.5 % (0.0-3.0); HEMATOCRIT 39.6 % (42.0-52.0); HEMOGLOBIN 12.4 gm/dL (14.0-18.0); LYMPHOCYTES 12.2 % (24.0-44.0); MCH 25.4 pg (26.0-34.0); MCHC 31.4 g/dL (28.0-37.0); MCV 80.9 fL (80.0-100.0); PLATELET COUNT 168 thou/uL (150-400); POLYS 72.1 % (36.0-66.0); RBC 4.89 mil/uL (4.50-6.00); RDW 18.4 % (10.5-14.5); WBC 11.2 thou/uL (4.0-11.0)
[2020-10-14 13:46] LABS: ANION GAP 10 mmol/L (7-16); BUN 14 mg/dL (7-18); CHLORIDE 109 mmol/L (98-107); CO2 30 mmol/L (21-32); CREATININE 0.8 mg/dL (0.7-1.3); GLUCOSE 186 mg/dL (74-106); POTASSIUM 3.3 mmol/L (3.5-5.1); SODIUM 149 mmol/L (136-145)
[2020-10-14 13:57] LABS: DIRECT BILIRUBIN 0.4 mg/dL (<0.1-0.2); MAGNESIUM 1.7 mg/dL (1.8-2.4); PHOSPHORUS 2.8 mg/dL (2.5-4.9); SGOT 57 U/L (15-37); SGPT 50 U/L (30-65); TOTAL BILIRUBIN 0.8 mg/dL (0.2-1.0); TOTAL PROTEIN 8.2 g/dL (6.4-8.2); TROPONIN-I <0.06 ng/mL (<0.06)
[2020-10-14 14:50] LABS: URINE BILIRUBIN 2+ (Negative); URINE BLOOD NEGATIVE (Negative); URINE CLARITY CLEAR; URINE COLOR YELLOW; URINE GLUCOSE-RANDOM* NEGATIVE (Negative); URINE KETONES 1+ (Negative); URINE LEUKOCYTES-REFLEX NEGATIVE (Negative); URINE NITRITE-REFLEX NEGATIVE (Negative); URINE PROTEIN (DIPSTICK) 1+ (Negative); URINE SPECIFIC GRAVITY >= 1.030 (1.005-1.035)
[2020-10-14 14:53] LABS: ICTOTEST (BILI CONFIRMATORY) Positive (Negative)
[2020-10-14 15:04] LABS: MUCUS >6 Heavy strn/LPF (None Seen)
[2020-10-14 15:05] LABS: BACTERIA-REFLEX None Seen /HPF (None Seen); CASTS None Seen /LPF (None Seen); CRYSTALS None Seen /LPF (None Seen); SQUAMOUS 0-3 Few /LPF (0-3); URINE RBC None Seen /HPF (NONE SEEN); URINE WBC-REFLEX 0-5 Rare /HPF (0-5)
[2020-10-14 15:18] LABS: ANISOCYTOSIS 2+; POLYCHROMASIA 1+; TARGET CELLS 2+
[2020-10-14 15:28] VITALS: BP 144/77
[2020-10-14] MEDS ORDERED: KLOR-CON 10 ER10 MEQ PO (15:28)
[2020-10-14] MEDS ORDERED: MAGNESIUM250 M1 PO (15:28)
[2020-10-14] MEDS ORDERED: TYLENOL325 M1 PO (15:28)
--- NOTE | 2020-10-15 11:36 | EKG ---
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 : 1960 Requested By: Everton Flores Order Number: [id number] MD: Felice Kelsey Measurements Intervals [place] Rate: 85 P: 15 MT: 128 QRS: 11 QRSD: 103 T: 214 QT: 439 QTc: 522 Interpretive Statements Sinus rhythm Abnormal R-wave progression, early transition LVH Diffuse T wave abnormality Prolonged QT interval Compared to ECG 06/04/2009 12:24:06 T wave abnormality is now present QT interval has lengthened Electronically Signed On 10-15-2020 11:36:26 CDT by Felice Kelsey [email or web address] <ELECTRONICALLY SIGNED> By: Felice Kelsey MD, [facility] 10/15/20 1136 1313 1313 Felice Kelsey MD, [facility] /EPI
--- NOTE | 2020-10-15 11:37 | EKG ---
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 : 1960 Requested By: Everton Flores Order Number: [id number] MD: Felice Kelsey Measurements Intervals [place] Rate: 92 P: 64 [place]: 152 QRS: 83 QRSD: 138 T: 40 QT: 410 QTc: 508 Interpretive Statements Sinus rhythm Ventricular bigeminy IVCD, consider atypical RBBB Compared to ECG 10/14/2020 13:13:14 Ventricular premature complex(es) now present T wave abnormality less prominent Prolonged QT interval no longer present Electronically Signed On 10-15-2020 11:37:21 CDT by Felice Kelsey [email or web address] <ELECTRONICALLY SIGNED> By: Felice Kelsey MD, [facility] 10/15/20 1137 1336 1336 Felice Kelsey MD, [facility] /EPI
== END 2020-10-14 15:28 | disposition home or self-care (01) ==
LOC: ER 12:37
PROVIDERS: Emergency Medicine
DX: S42.391A Other fracture of shaft of right humerus, initial encounter for closed fracture (principal); E83.42 Hypomagnesemia; M62.82 Rhabdomyolysis; I10 Essential (primary) hypertension; E78.5 Hyperlipidemia, unspecified; E11.40 Type 2 diabetes mellitus with diabetic neuropathy, unspecified; F17.210 Nicotine dependence, cigarettes, uncomplicated; Z79.899 Other long term (current) drug therapy; W18.39XA Other fall on same level, initial encounter; Y93.89 Activity, other specified; Y92.89 Other specified places as the place of occurrence of the external cause; Y99.8 Other external cause status

== ENCOUNTER 2020-10-15 11:09 | Emergency (ER) | payer OTHER ==
[~2020-10-15] VITALS: Ht 177.8 cm; Wt 68.0 kg
--- NOTE | ~2020-10-15 | EMS ---
[address] [address] EMS Patient Care Report Name: ENZO ALARCON Room #: [facility] YULI Samuels#: [id number] Admission: 10/15/20 Attend Phys: Discharge: Date of : 56 Report #: [id number] THIS REPORT FOR: //name// Report Transmitted: 10/15/2020 10:33 EMS Care Summary [place], [place]/[facility] Incident [id number] @ 10/15/2020 10:38 Incident Location [address] Patient ENZO ALARCON Male, 60 Years 1960 Patient Address [address] [place] [address] Patient History Behavioral/Psychiatric Disorder,Diabetes,Hypertension (HTN),Seizures, Patient Allergies No known allergies, Patient Medications Oxycodone/ASA, Metoprolol, Glyburide, Buspirone, Phenytoin, Famotidine, Amitriptyline, Ferrous Sulfate, Trazodone, Allopurinol, Chief Complaint ALTERED MENTAL STATUS Disposition Transported No Lights/[place] Dispatch Reason Falls Transported To [facility] Narrative ARRIVED ON SCENE TO FIND PT ON THE FLOOR. PT WAS SEEN YESTERDAY UNDER SIMILAR CIRCUMSTANCES. PT WAS ADAMANT HE DID NOT FALL, BUT COULD NOT SAY HOW OR WHEN HE [address] [address] EMS Patient Care Report Name: ENZO ALARCON Room #: [facility] YULI Samuels#: [id number] Admission: 10/15/20 Attend Phys: Discharge: Date of : 56 Report #: [id number] GOT ON THE FLOOR. PT WAS NOT SURE WHAT DAY/MONTH IT WAS EITHER. PT WAS INCONTINENT OF URINE AND FECEES WELL. PT DENIED C/O OTHERWISE AND RESTED ON THE STRETCHER FOR THE DURATION OF TREATMENT AND TRANSPORT. PT MOVED TO ER BED WITH ASSISTANCE; RAILS RAISED. PT REPORT GIVEN TO RN AND PT CARE TRANSFERRED. Initial Vitals @10:50P: 98,R: 16,BP: 150/72,Pain: 0/10,GCS: 14,SpO2: 98,Revised Trauma: 12, @11:07P: 102,R: 18,BP: 155/82,Pain: 0/10,GCS: 14,Glucose: 196,SpO2: 98,Revised Trauma: 12, Assessments @10:47MENTAL:Confused,Person Oriented,Place Oriented,SKIN:HEENT:Head/Face: No Abnormalities,Neck/Airway: No Abnormalities,LUNG SOUNDS:General: No Abnormalities,ABDOMEN:General: No Abnormalities,PELVIS//GI:Incontinence,EXTREMITIES:Right Leg: Weakness,Left Leg: Weakness,Left Arm: No Abnormalities,Right Arm: No Abnormalities,PULSE:Radial: 2+ Normal,NEURO:No Abnormalities, Impression Altered Mental Status Procedures @10:47ALS AssessmentResponse: UnchangedSucceeded Timeline 10:37,Call Received 10:37,Dispatch Notified 10:38,Dispatched 10:38,En Route 10:43,On Scene 10:47,At Patient 10:47,ALS Assessment,Response: UnchangedSucceeded, 10:50,BP: 150/72 M,PULSE: 98,RR: 16 R,SPO2: 98 Ox,ETCO2: ,BG: ,PAIN: 0,GCS: 14, 11:00,Depart Scene 11:04,At Destination 11:07,BP: 155/82 M,PULSE: 102,RR: 18 R,SPO2: 98 Ox,ETCO2: ,B,PAIN: 0,GCS: 14, 11:20,Call Closed Disclaimer [email or web address] Copyright 2020 [employer] This EMS Care Summary contains data elements from the applicable legal record (which may be displayed differently). It is designed to provide pertinent information for the following purposes: continuity of care, clinical quality, and state data reporting. The complete legal record is available to ED staff and administrators of the receiving hospital in [facility]'s Patient Tracker. All data [address] [address] EMS Patient Care Report Name: ENZO ALARCON Room #: REG YULI Samuels#: [id number] Admission: 10/15/20 Attend Phys: Discharge: Date of : 56 Report #: [id number] is provided "as is."
[~2020-10-15 11:09] MED LIST changes: +KLOR-CON 10 ER10 MEQ PO; +MAGNESIUM250 M1 PO; +TYLENOL325 M1 PO
--- NOTE | 2020-10-15 11:45 | EKG ---
[address] [address] [address] [address] ELECTROCARDIOGRAM REPORT Name: ENZO ALARCON Room #: [facility] Arvind#: [id number] Admission: 10/15/20 Attend Phys: Discharge: Date of : 56 Report #: [id number] [facility] ED Test Date: 2020-10-15 Test Time: 11:28:11 Pat Name: ENZO ALARCON Department: Room: Gender: M Svp Digital Sales: leobardo : 1960 Requested By: Everton Flores Order Number: [id number] MD: Felice Kelsey Measurements Intervals [place] Rate: 90 P: -4 [place]: 118 QRS: 12 QRSD: 92 T: 205 QT: 432 QTc: 529 Interpretive Statements Sinus rhythm Atrial premature complexes in couplets Borderline short [place] interval LVH w/ repol abnormalities, possible ischemia Prolonged QT interval Compared to ECG 10/14/2020 13:36:37 Atrial premature complex(es) now present T wave abnormality is new Prolonged QT interval now present Ventricular premature complex(es) no longer present Electronically Signed On 10-15-2020 11:45:29 CDT by Felice Kelsey [email or web address] <ELECTRONICALLY SIGNED> By: Felice Kelsey MD, [facility] 10/15/20 1145 1128 1128 Felice Kelsey MD, [facility] /EPI
[2020-10-15 13:09] LABS: HEMATOCRIT 38.6 % (42.0-52.0); HEMOGLOBIN 11.9 gm/dL (14.0-18.0); MCH 25.3 pg (26.0-34.0); MCHC 30.8 g/dL (28.0-37.0); MCV 82.1 fL (80.0-100.0); PLATELET COUNT 142 thou/uL (150-400); RBC 4.71 mil/uL (4.50-6.00); RDW 18.4 % (10.5-14.5); WBC 11.3 thou/uL (4.0-11.0)
[2020-10-15 13:11] VITALS: BP 141/78
[2020-10-15 13:13] LABS: ANION GAP 11 mmol/L (7-16); BUN 18 mg/dL (7-18); CALCIUM 10.2 mg/dL (8.5-10.1); CHLORIDE 113 mmol/L (98-107); CO2 28 mmol/L (21-32); GLUCOSE 175 mg/dL (74-106); POTASSIUM 3.2 mmol/L (3.5-5.1); SODIUM 152 mmol/L (136-145)
[2020-10-15 13:24] LABS: ALBUMIN 2.9 g/dL (3.4-5.0); AMYLASE 75 U/L (25-115); DIRECT BILIRUBIN 0.4 mg/dL (<0.1-0.2); LIPASE 189 U/L (73-393); MAGNESIUM 1.7 mg/dL (1.8-2.4); PHOSPHORUS 2.3 mg/dL (2.6-4.7); SGOT 48 U/L (15-37); SGPT 47 U/L (16-63); TOTAL BILIRUBIN 0.8 mg/dL (0.2-1.0); TROPONIN-I <0.06 ng/mL (<0.06)
[2020-10-15 14:48] LABS: ANISOCYTOSIS 2+; POLYCHROMASIA 1+
== END 2020-10-15 13:11 | disposition short-term general hospital (02) ==
LOC: ER 11:09
PROVIDERS: Emergency Medicine
DX: I61.0 Nontraumatic intracerebral hemorrhage in hemisphere, subcortical (principal); M25.511 Pain in right shoulder; M25.532 Pain in left wrist; I10 Essential (primary) hypertension; E78.5 Hyperlipidemia, unspecified; E11.40 Type 2 diabetes mellitus with diabetic neuropathy, unspecified; F17.210 Nicotine dependence, cigarettes, uncomplicated; Z79.899 Other long term (current) drug therapy